=== PATIENT | female | born 1995 | race African-American/Black ===

== ENCOUNTER 2016-10-23 08:15 | Outpatient (CLI) | payer SELFPAY ==
[2016-10-23 08:32] VITALS: BP 103/57; PULSE 78; RESP 14; TEMP 98.4
== END 2016-10-23 09:06 | disposition home or self-care (01) ==
LOC: FBPOP 08:15
PROVIDERS: ATTEND Obstetrics & Gynecology
DX: O26.92 Pregnancy related conditions, unspecified, second trimester (principal); Z3A.22 22 weeks gestation of pregnancy
CPT/HCPCS: 84112; 99213